=== PATIENT | male | born 1985 | race African-American/Black ===

== ENCOUNTER 2024-01-24 14:53 | Emergency (ER) | payer OTHER, SELFPAY ==
[2024-01-24 15:09] VITALS: BP 142/75
--- NOTE | 2024-01-24 15:27 | ED.PDOC.TRB ---
ED Provider Triage
-
A medical screening examination has been initiated by a qualified medical provider. Based on the assessment performed at this time, it has been determined that an emergent medical condition may exist and the patient has been informed that further
medical evaluation and possible additional diagnostic testing may be needed.
HPI: This is a medical evaluation conducted in person to initiate diagnostic evaluation and provide initial therapeutics. Please see further documentation by the treating clinician.
GENERAL: Alert , in no apparent distress
EYE: No visual abnormalities.
NECK: Trachea midline
ENT: No visible abnormalities.
LUNGS: No acute respiratory distress
NEUROLOGICAL: Alert and oriented
SKIN: Skin intact. No visible changes.
MUSCULOSKELETAL: Moving extremities normally
PSYCH: Normal and appropriate interaction.
38-year-old male with a history of paroxysmal A-fib, anxiety presents for a few days of some chest tightness, described as occasional discomfort, sometimes sharp and then resolves as well as some anxiety and throat symptoms. Patient thinks maybe it
is his anxiety but he was not sure. He has not felt that he has been in A-fib. He is not having any pleuritic pain. This been going on for couple of days but seem to get slightly worse today which is why he came in to be sure it was not anything
serious.
His EKG is sinus, his lungs are clear. He looks well. Will start with screening labs including a troponin. This could be GERD versus anxiety.
[2024-01-24 15:43] LABS: % Basophils 0.9 % (0-2); % Eosinophils 0.5 % (0-6); % Immature Granulocytes 0.1 % (0-0.5); % Lymphocytes 28.7 % (20.5-51.1); % Monocytes 8.8 % (1.7-9.3); Absolute Basophils 0.1 10^3/uL (0-0.2); Absolute Lymphocytes 2.2 10^3/uL (1.2-3.4); Absolute Monocytes 0.7 10^3/uL (0.1-0.6); Absolute Neutrophils 4.7 10^3/uL (1.4-6.5); Hematocrit 42.1 % (39.0-52.0); Hemoglobin 14.6 g/dL (13.0-18.0); Mean Corp Hgb Conc. 34.7 g/dL (33.0-37.0); Mean Corpuscular Hgb 27.9 pg (27.0-31.0); Mean Corpuscular Volume 80.3 fL (80.0-94.0); Mean Platelet Volume 10.1 fL (7.4-10.4); Nucleated Red Blood Cells % 0 % (-); Platelet Count 283 10^3/uL (130-400); Red Blood Cell Count 5.24 10^6/uL (4.70-6.10); Red Cell Dist. Width 12.3 % (11.5-14.5); White Blood Cell Count 7.7 10^3/uL (4.8-10.8)
[2024-01-24 15:56] LABS: ALT (SGPT) 27 U/L (0-50); AST (SGOT) 25 U/L (17-59); Alkaline Phosphatase 53 U/L (38-126); Blood Urea Nitrogen 14 mg/dl (9-20); Calcium 9.9 mg/dl (8.4-10.2); Carbon Dioxide 24 mmol/L (22-30); Chloride 106 mmol/L (98-107); Glucose 117 mg/dl (70-99); Potassium 4.2 mmol/L (3.5-5.1); Sodium 143 mmol/L (135-145); Total Bilirubin 0.8 mg/dl (0.2-1.3); Total Protein 7.8 g/dl (6.3-8.2); eGFR > 60.00
[2024-01-24 16:06] LABS: Troponin I 0.023 ng/ml
--- NOTE | 2024-01-24 16:42 | EDRN ---
Jose Nixon PA in room w/pt at this time.
--- NOTE | 2024-01-24 16:54 | EDRN ---
Jose WELLS updated me and pt may go to [facility] he said.
[2024-01-24 16:55] VITALS: BMI 38.6
[2024-01-24 17:02] VITALS: BP 162/106
[2024-01-24 17:51] VITALS: BP 153/109
[2024-01-24 18:22] LABS: Troponin I < 0.012 ng/ml
--- NOTE | 2024-01-24 18:30 | ED.GENMED ---
History of Present Illness
General
Chief Complaint: Anxiety
Time Seen by Provider: 01/24/24 16:25
History of Present Illness
History of Present Illness:
38-year-old male with history of paroxysmal A-fib not currently on anticoagulants presents to the emergency department for evaluation of intermittent periods of chest tightness, heart palpitations, lightheadedness, and throat pain. He admits that
he has frequent anxiety and this could be playing a role. He has no symptoms at present. Does not feel comparable to his past bouts of A-fib. No fevers or chills. Denies illicit substance use
Past History
Past History
ED Past Medical History: Psychiatric (Anxiety)
Social History
Tobacco: Non-smoker
Drug: Marijuana
Review of Systems
Review of Systems
Allergies reviewed?: Yes
All Other Systems: ROS reviewed and negative except as documented in HPI and ROS
Phy Exam
Physical Exam
Physical Exam:
GEN: Well appearing, NAD, WDWN
HEENT: Oral mucosa moist, no scleral icterus
Cardiac: Regular rate and rhythm, no murmurs
Lung: No respiratory distress, no tachypnea, lungs CTAB
MSK: No gross deformity or injuries
Skin: Good color, no pallor or jaundice, no rashes
Neuro: AO x3, moves all extremities freely
Psych: Calm, cooperative
Course
Orders/Labs/Results
Orders:
Orders
01/24/24 15:14
Electrocardiogram (*1) Urgent
Reason for Study: Chest Pain
EKG- Treatment ONCE
01/24/24 15:32
Complete Blood Count/With Diff Urgent
Comprehensive Metabolic Panel Urgent
Troponin I Urgent
01/24/24 16:48
CR Chest - 2 Views Urgent
Comment:
Reason For Exam: chest pain
01/24/24 17:48
Troponin I Routine
Abnormal Lab Results
01/24/24
15:32
Absolute Monos (auto) 0.7 H 10^3/uL
(0.1-0.6)
Glucose 117 H mg/dl
(70-99)
01/24/24 15:32
01/24/24 15:32
Vital Signs
Initial and Last Documented VS:
Initial Vital Signs
Temp Pulse Resp BP Pulse Ox
97.2 F 89 18 142/75 98
01/24/24 15:09 01/24/24 15:09 01/24/24 15:09 01/24/24 15:09 01/24/24 15:09
Last Documented Vital Signs
Temp Pulse Resp BP Pulse Ox
97.2 F 84 16 153/109 97
01/24/24 15:09 01/24/24 17:51 01/24/24 17:51 01/24/24 17:51 01/24/24 17:51
MDM/Problems Addressed
MDM/Problems Addressed:
EKG is non ischemic, no clinical signs of ACS however pt's initial troponin was non negative thus repeat was obtained, second trop reassuring. Doubt ACS, PE
*Critical Care Note
Total Time (30-74mins, 75-104mins- exclusive of procedures): Not Applicable
ED Attending Note
-
Portions of this chart may have been created with voice recognition software.� Occasional wrong word or��sound alike� substitutions may have occurred due to the inherent limitations of voice recognition software.
Discharge Plan
Departure
Patient Disposition: Home (Routine Discharge)
Date of Disposition: 01/24/24
Time of Disposition: 18:30
Patient with high blood pressure during this ER visit?: No
Discharge Problem:
Chest tightness, Nasal vestibulitis
Instructions: Chest Pain, Adult ED
Prescriptions:
New
mupirocin 2 % ointment
1 applic topical BID 7 Days Qty: 22 0RF
No Action
metoprolol tartrate 25 mg tablet
25 mg PO BID Qty: 60 0RF
alprazolam [Xanax] 0.5 mg tablet
0.5 mg PO BID PRN (Reason: anxiety) Qty: 20 0RF
Referrals:
UNKNOWN - PT DOES,NOT KNOW [Family Provider] -
Interventions
Interventions:
*Risk Screen - Suicide Last Done: 01/24/24 15:09
*General Assessment Last Done: 01/24/24 15:09
*Neglect/Abuse Screening Last Done: 01/24/24 15:09
ED- Fall Risk Assessment Last Done: 01/24/24 16:58
*ED COVID-19 Vaccine History Last Done: 01/24/24 16:58
*Nursing Disposition Last Done: 01/24/24 18:35
ED-Psychological Assessment Last Done: 01/24/24 16:58
Discharge Date and Time
Discharge Date/Time: 01/24/24 18:35
Print Language: AMHARIC
== END 2024-01-24 18:35 | disposition home or self-care (01) ==
LOC: EMR 14:53
PROVIDERS: Emergency Medicine; Physician Assistant; EMERGENCY PHYSICIAN Emergency Medicine
DX: J34.89 Other specified disorders of nose and nasal sinuses (principal); R07.89 Other chest pain; R00.2 Palpitations; R07.0 Pain in throat; R42 Dizziness and giddiness; F41.9 Anxiety disorder, unspecified; I48.0 Paroxysmal atrial fibrillation
CPT/HCPCS: 99283; 71046; 80053; 84484; 85025; 93005